=== PATIENT | female | born 1970 | race Caucasian/White ===

== ENCOUNTER 2019-08-23 15:42 | Outpatient (CLI) | payer BC, SELFPAY ==
--- NOTE | 2019-08-23 15:48 | XR_ITS ---
WS: [id number] 3 views of the right first finger, 08/23/2019 Clinical Data: RIGHT THUMB PAIN Comparison: None. Findings: No fractures or dislocations are seen. The soft tissues are normal. There is minimal osteoarthritic c hange between the trapezium and base of the right first metacarpal. XR/XR finger RT min 2V [id number] Impression: Negative for dislocation.
== END 2019-08-23 15:43 | disposition home or self-care (01) ==
LOC: RADWPI 15:44
PROVIDERS: Family Provider Internal Medicine; PCP Internal Medicine; Visit Provider Internal Medicine
DX: M79.644 Pain in right finger(s) (principal)
CPT/HCPCS: 73140

== ENCOUNTER 2019-09-24 11:11 | Outpatient (CLI) | payer BC, SELFPAY ==
--- NOTE | 2019-09-24 11:14 | MM_ITS ---
WS: [id number] BILATERAL DIGITAL SCREENING MAMMOGRAPHY WITH CAD CLINICAL INFORMATION: SCREENING HISTORY: Screening mammogram. No current complaints. COMPARISON: June 17, 2018 TECHNIQUE: Bilateral CC and MLO views. FINDINGS: Scattered fibroglandular densities bilaterally. No suspicious focal mass, asymmetry, calcifications, or architectural distortion. No evidence of malignancy. MM/[id number] IMPRESSION: BI-RADS: 1-Negative FOLLOW UP: 1 Year Follow-up Recommend return to annual screening mammography.
== END 2019-09-24 11:12 | disposition home or self-care (01) ==
LOC: RADSHAW 11:11
PROVIDERS: PCP Internal Medicine; Visit Provider Nurse Practitioner Family
DX: Z12.31 Encounter for screening mammogram for malignant neoplasm of breast (principal)
CPT/HCPCS: 77067

== ENCOUNTER 2021-08-17 06:11 | Day surgery (SDC) | payer OTHER, SELFPAY ==
[2021-08-16 11:39] VITALS: BMI 44.7
[2021-08-17 06:42] VITALS: BP 138/97; PULSE 93; RESP 18; TEMP 36.7; O2SAT 96
[2021-08-17] MEDS: sodium chloride 0.9% 1,000 ML 30 ML IV (06:45)
[2021-08-17 06:46] LABS: OR HCG Qualitative Urine Negative (Negative)
--- NOTE | 2021-08-17 07:45 | ANES.PREANE2 ---
Pre-Anesthetic Assessment Height/Weight: Height 1.55 m Weight 107.501 kg Temp Pulse Resp BP Pulse Ox 98.0 F 93 18 138/97 96 08/17/21 06:42 08/17/21 06:42 08/17/21 06:42 08/17/21 06:42 08/17/21 06:42 Preop Diagnosis: Constipation, GERD, Abdominal pain Operation Date: 08/17/21 07:45 Proposed Procedures p 9[address]93 EGD, 12882 Colon R10.9,K21.9,K59.00(Not Applicable) - DO jeff Posada Colonoscopy(Not Applicable) - Da Decker DO Familial anesthetic complications: None Was Beta Charissa taken within 24 hours: N/A Was Clonidine taken within 24 hours: N/A Last intake: Intake Last Liquid Date 08/16/21 Last Liquid Time 20:00 Last Solid Date 08/15/21 Last Solid Time 17:00 Social No alcohol and No tobacco Exam alert, oriented x 3, clear to auscultation bilaterally and regular rate & rhythm Airway Mallampati: Class II Dentition: full GI Gastroesophageal Reflux Disease Metabolic Morbid Obesity Anesthetic Plan ASA status: 2 Anesthesia: MAC Risk of > 500 ml blood loss (7ml/kg in children): No Medications/Allergies Home Medications Medication Instructions Recorded Confirmed Last Taken Type bupropion HCl 150 mg 24 hr tablet, 150 mg PO QAM 07/18/21 08/16/21 08/16/21 History extended release (Wellbutrin XL) hydroxyzine HCl 50 mg tablet 50 mg PO DAILY tab 07/18/21 08/16/21 1 Month Ago History ~07/18/21 ondansetron HCl 4 mg tablet 4 mg PO Q8H PRN 07/18/21 08/16/21 08/15/21 History pantoprazole 40 mg tablet,delayed 40 mg PO DAILY 07/18/21 08/16/21 1 Month Ago History release (Protonix) ~07/18/21 norgestimate-ethinyl estradiol 1 tab PO DAILY 08/16/21 08/16/21 08/16/21 History 0.18 mg/0.215mg/0.25mg-35 mcg(28)tablet (Tri Femynor) Allergies Allergy/AdvReac Type Severity Reaction Status Date / Time No Known Allergies Allergy Verified 08/17/21 06:40 Current Medications Generic Name Dose Route Start Last Admin Trade Name Freq PRN Reason Stop Dose Admin Sodium Chloride 1,000 mls @ 30 mls/hr 08/17/21 06:30 08/17/21 06:45 Sodium Chloride 0.9% IV 08/18/21 06:29 30 mls/hr .Q24H MIL Administration PFSH Anesthesia Medical History (Updated 07/18/21 @ 10:07 by Da Decker DO) Constipation GERD (gastroesophageal reflux disease) Surgical History (Updated 07/18/21 @ 10:04 by Da Decker DO) History of History of colonoscopy Social History Smoking and tobacco status: never smoked Data Anesthesia Cardiac Studies: No Data to Display
--- NOTE | 2021-08-17 07:49 | PM.HP ---
Providers/Chief Complaint Primary Care Provider: Keira Chang DO Chief Complaint: Abdominal pain History of Present Illness Laxmi Lozano is a 51 year old female who presents for EGD and colonoscopy. Nothing has changed since her previous H&P 31 days ago Review of Systems General: Reports: 10 or more systems reviewed and unremarkable except in HPI and below Medications/Allergies Home Medications Medication Instructions Recorded Confirmed Last Taken Type bupropion HCl 150 mg 24 hr tablet, 150 mg PO QAM 07/18/21 08/16/21 08/16/21 History extended release (Wellbutrin XL) hydroxyzine HCl 50 mg tablet 50 mg PO DAILY tab 07/18/21 08/16/21 1 Month Ago History ~07/18/21 ondansetron HCl 4 mg tablet 4 mg PO Q8H PRN 07/18/21 08/16/21 08/15/21 History pantoprazole 40 mg tablet,delayed 40 mg PO DAILY 07/18/21 08/16/21 1 Month Ago History release (Protonix) ~07/18/21 norgestimate-ethinyl estradiol 1 tab PO DAILY 08/16/21 08/16/21 08/16/21 History 0.18 mg/0.215mg/0.25mg-35 mcg(28)tablet (Tri Femynor) Allergies Allergy/AdvReac Type Severity Reaction Status Date / Time No Known Allergies Allergy Verified 08/17/21 06:40 PFSH Acute PFSH: Medical History Constipation GERD (gastroesophageal reflux disease) Surgical History History of History of colonoscopy Social History Smoking and tobacco status: never smoked Vitals/I&O/Wt Last Vital Signs Temp 98.0 F 08/17/21 06:42 Pulse 93 08/17/21 06:42 Resp 18 08/17/21 06:42 BP 138/97 08/17/21 06:42 Pulse Ox 96 08/17/21 06:42 Weight last 48 hrs Weight 237 lb Physical Exam Narrative: General : Patient is well developed , no acute distress, oriented x3 Head : Normal cephalic, a-traumatic. Ears : Pinnae and external canal are normal. Hearing is normal. Eyes : PERRLA, Sclera and injection are normal. No conjunctival discharge. Nose : Mucous membranes are without erythema. Throat : buccal mucosa is normal, gums are without significant recession or hypertrophy. Lungs : Equal chest rise bilaterally, no use of accessory muscles, trachea is midline. Cor : Rate and rhythm are normal. Abdomen : Soft, ND, NT, no g/r/m Extremities : No edema, no cyanosis or clubbing, dorsalis pedis pulses are present bilaterally, non-tender to palpation of calves. Upper extremities are normal bilaterally. Back : non-tender to palpation, no CVA tenderness. Neuro : CN II - XII intact, Upper and lower extremities have equal and full strength A&P Assessment and plan (1) Abdominal pain: Status: Acute Plan EGD and colonoscopy The risks and benefits of the procedure, including bleeding, infection, intestinal perforation requiring surgery, missed lesion, or explained to the patient. He is understanding of the risks and wishes to proceed. 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
[2021-08-17 08:23] VITALS: BP 124/81; PULSE 94; RESP 18; TEMP 36.3; O2SAT 95
[2021-08-17 08:41] VITALS: BP 120/82; PULSE 78; RESP 18; O2SAT 99
--- NOTE | 2021-08-17 09:02 | ANE.PACU2 ---
Inpatient post-anesthesia follow up: Airway intact: Yes Vital signs: Temperature 97.3 F Pulse Rate 78 Respiratory Rate 18 Blood Pressure 120/82 Pulse Oximetry 99 Oxygen Delivery Me thod Room Air Oxygen Flow Rate 4 Fraction of Inspir ed Oxygen Hydration adequate: Yes Nausea and vomiting: No Pain level: 1 Mental status: Baseline
== END 2021-08-17 08:56 | disposition home or self-care (01) ==
PROVIDERS: Anesthesiology; PCP Family Medicine; Visit Provider Surgery
PROC: 0DJ08ZZ Inspection of Upper Intestinal Tract, Via Natural or Artificial Opening Endoscopic (ICD-10-PCS; CPT 43235; principal; 2021-08-17 07:45)
PROC: 0DJD8ZZ Inspection of Lower Intestinal Tract, Via Natural or Artificial Opening Endoscopic (ICD-10-PCS; CPT 45378; 2021-08-17 07:45)
DX: R10.9 Unspecified abdominal pain (principal); K21.9 Gastro-esophageal reflux disease without esophagitis; K64.3 Fourth degree hemorrhoids; K29.70 Gastritis, unspecified, without bleeding; E66.01 Morbid (severe) obesity due to excess calories; Z68.41 Body mass index [BMI] 40.0-44.9, adult
CPT/HCPCS: 43239; 45378; 81025; 84703; 88305; J2704; J7030

== ENCOUNTER 2022-07-15 10:30 | Outpatient (CLI) | payer OTHER, SELFPAY ==
--- NOTE | 2022-07-15 10:36 | MM_ITS ---
WS: [id number] SCREENING DIGITAL TOMOSYNTHESIS MAMMOGRAM WITH CAD HISTORY: SCREENING COMPARISON: 09/24/2019, 06/17/2018 Bilateral CC and MLO with tomosynthesis views submitted. Synthetic mammography reviewed. Computer aid ed detection analyzed. Breast composition: There are scattered areas of fibroglandular density. No suspicious masses, microc alcifications or architectural distortion. MM/[place] [id number] IMPRESSION: BI-RADS: 1-Negative FOLLOW UP: 1 Year Follow-up
== END 2022-07-15 10:31 | disposition home or self-care (01) ==
PROVIDERS: PCP Family Medicine; Visit Provider Advanced Practice Midwife
DX: Z12.31 Encounter for screening mammogram for malignant neoplasm of breast (principal)
CPT/HCPCS: 77063; 77067

== ENCOUNTER 2023-02-04 21:54 | Emergency (ER) | payer OTHER, SELFPAY ==
[2023-02-04 21:58] VITALS: BP 156/96; PULSE 96; RESP 18; TEMP 36.3; O2SAT 96
[2023-02-04 22:38] LABS: Basophils % 0.4 %; Eosinophils # 0.1 10^3/uL (0.0-0.8); Eosinophils % 1.2 %; Hematocrit 34.4 % (36-47); Lymphocytes # 2.4 10^3/uL (0.8-4.8); Mean Corpuscular HGB Conc 32.8 g/dL (30-55); Mean Corpuscular Hemoglobin 30.3 pg (27-33); Mean Corpuscular Volume 92.2 fl (85-98); Monocytes # 0.9 10^3/uL (0.2-0.9); Monocytes % 10.6 %; Neutrophils # 5.11 10^3/uL (1.8-7.7); Neutrophils % 59.6 %; Nucleated Red Blood Cells % 0 %; Platelet Count 227 10^3/cmm (157-399); Red Blood Count 3.73 10^6/uL (3.85-5.65); Red Cell Distribution Width 13.7 % (12.1-15.1); White Blood Count 8.57 10^3/uL (3.29-11.43)
--- NOTE | 2023-02-04 22:54 | CTR_ITS ---
PROCEDURE INFORMATION: Exam: CT Abdomen And Pelvis With Contrast Exam date and time: 02/04/2023 11:11 PM Age: 53 years old Clinical indication: Abdominal pain; Epigastric; Prior surgery; Surgery date: 1-6 months; Surgery type: Gastric sleeve September 2022; Additional info: Abd pain TECHNIQUE: Imaging protocol: Computed tomography of the abdomen and pelvis with contrast. Radiation optimization: All CT scans at this facility use at least one of these dose optimization techniques: automated exposure control; mA and/or kV adjustment per patient size (includes targeted exams where dose is matched to clinical indication); or iterative reconstruction. Contrast material: OMNI 350; Contrast volume: 75 ml; Contrast route: INTRAVENOUS (IV); REPORTING DATA: Count of CT and Cardiac NM exams in prior 12 months: This patient has received 0 known CTs and 0 known cardiac nuclear medicine studies in the 12 months prior to the current study. COMPARISON: No relevant prior studies available. RADIATION DOSE METRICS: Total DLP (mGy-cm): 781.68 FINDINGS: Lungs: Clear. Question filling defect within the proximal right upper lobe segmental pulmonary artery branch, series 3, image 1, however this is on the last image slice of the stack, could be artifactual. Liver: Unremarkable. Gallbladder and bile ducts: No calcified stones. No biliary ductal dilation. No pericholecystic fluid. Pancreas: Unremarkable. No duct dilation. Spleen: Unremarkable. Adrenal glands: Unremarkable. Kidneys and ureters: No hydronephrosis or hydroureter. No renal or ureteral calculi. Stomach and bowel: Surgical changes of gastric sleeve. Small hiatal hernia. No bowel obstruction. Appendix: Normal appendix. Intraperitoneal space: Unremarkable. No free air. No significant fluid collection. Vasculature: No abdominal aortic aneurysm. Lymph nodes: No enlarged lymph nodes. Urinary bladder: Unremarkable as visualized. Reproductive: Unremarkable as visualized. Bones/joints: No acute fracture. Degenerative change. Soft tissues: Unremarkable. CT/CT abdomen pelvis w con* [id number] IMPRESSION: 1. No acute findings in the abdomen/pelvis. 2. Question filling defect within the proximal right upper lobe segmental pulmonary artery branch, however this is seen on the last image slice of the stack and may be artifactual. If clinically indicated, this could be further evaluated with CT PE study. 3. Small hiatal hernia.
[2023-02-04 22:55] LABS: Alanine Aminotransferase 18 U/L (0-33); Albumin Level 4.2 g/dL (3.5-5.2); Alkaline Phosphatase 61 U/L (35-105); Aspartate Amino Transferase 17 U/L (0-32); Blood Urea Nitrogen 23 mg/dL (6-20); Calcium 9.5 mg/dL (8.5-10.5); Carbon Dioxide 24 mmol/L (22-29); Chloride 102 mmol/L (98-107); Globulin 2.7 g/dL (1.3-4.6); Glomerular Filtration Rate 39.5 mL/min (90-130); Glucose 154 mg/dL (65-115); Lipase 34 U/L (13-60); Osmolality Calculated 297 mOsm/kg (285-295); Sodium 140 mmol/L (136-145); Total Bilirubin 0.3 mg/dL (0.15-1.2); Total Protein 6.9 g/dL (6.6-8.7)
--- NOTE | 2023-02-04 22:56 | ED_ITS ---
HPI - Abdominal Pain 2 General: Chief Complaint: Abdominal Pain Stated Complaint: abd pain Time Seen by Provider: 02/04/23 22:45 History of Present Illness: 54-year-old female presents em ergency room with nausea, vomiting and abdominal pain that started today. Patient further reviews that she has gastric sleeve done in [place] about 5 months ago. Patient was having nausea and vomiting every day since having the surgery done in September of this year.. She became more concerned today, because of the abdominal pain that started today. She described the pain as sharp aching sensation with severity of 7 out of 10 mostly epigastric region. Patient has any vomiting blood or coughing up blood. No fever, chills, dysuria, hematuria urine frequency. No known sick contact recent foreign travel. Associated Symptoms: Reports nausea and vomiting; Denies belching, bloating, change in bowel habits, chills, coffee ground emesis, constipation, GI cramping, excessive flatus and fever(s) Review of Systems 2 General: Reports: 10 or more systems reviewed and unremarkable except in HPI and below Const: Denies: fever(s), chills, body aches, change in appetite, change in weight, fatigue, malaise or diaphoresis GI: Reports: abdominal pain, nausea and vomiting; Denies: coffee ground emesis, dysphagia, constipation, bloating, GI cramping, belching, excessive flatus, change in bowel habits, pain on defecation, rectal pain or rectal swelling PFS ED 2 PFSH: Medical History (Updated 02/05/23 @ 00:06 by Mike Gutierrez MD) Grade IV internal hemorrhoids H. pylori infection Constipation GERD (gastroesophageal reflux disease) Surgical History History of colonoscopy History of Social History Smoking and tobacco/nicotine status: never used tobacco/nicotine Physical Exam 2 Const: COMMON NORMALS: no acute distress, average body habitus, patient oriented x3, no limitations, healthy appearing, alert and well nourished HENMT: COMMON NORMALS: normocephalic, atraumatic, hearing grossly normal bilaterally, external ears normal, EAC's normal, TM's normal bilaterally, Normal external nose present, Normal nasal mucous membranes and turbinates present, moist oral mucous membranes, oropharynx normal, dentition normal and gingiva normal HEAD & SCALP: normocephalic and atraumatic NOSE: Normal external nose present and Normal nasal mucous membranes and turbinates present E XTERNAL EAR: Yes external ears normal EXTERNAL AUDITORY CANAL: EAC's normal TYMPANIC MEMBRANE: TM's normal bilaterally Resp: COMMON NORMALS: normal respiratory effort, No retractions, No use of accessory muscles, clear to auscultation bilaterally and percussion normal A USCULTATION: clear to auscultation bilaterally PERCUSSION: percussion normal GI: COMMON NORMALS: Soft to palpation INSPECTION: Yes normal to inspection, No Abdominal wall edema, No Anasarca and No abdominal distension PALPATION: Y es Soft to palpation, Yes Tenderness to palpation present (GI) Details: other (Epigastric area), No Splenomegaly present, No Pulsatile mass present, No Ascites present and No Abdominal wall crepitus present : COMMON NORMALS: Yes no CVA tenderness BLADDER/KIDNEY EXAM: Yes no CVA tenderness Back/Pelvis: COMMON NORMALS: no CVA tenderness and no thoracic nor lumbar tenderness; negative for thoracic and lumbar spine normal to inspection and negative for straight leg raise negative bilaterally Extremity: COMMON NORMALS: normal to inspection, full ROM, capillary refill normal, no joint enlargement, no clubbing, cyanosis or edema, no calf tenderness and no pedal edema Neuro: COMMON NORMALS: patient oriented x3 SENSORIUM/ORIENTATION: Yes alert Course 2 Reevaluation(s): Reevaluation #1: Upon reassessment patient reveals complete resolution of her pain. No more nausea or vomiting at this time. Will be given another bag of fluids due to dehydration Vital Signs: Vital signs: Vital Signs Temperature 97.3 F L 02/04/23 21:58 Pulse Rate 80 02/05/23 01:45 Respiratory Rate 16 02/05/23 01:45 Blood Pressure 156/96 02/04/23 21:58 Pulse Oximetry 99 02/05/23 01:45 Oxygen Delivery Me thod Room Air 02/04/23 21:58 MDM - Abdominal Pain Medical Decision Making Patient was made comfortable emergency room had extensive workup with CBC, CMP, lipase UA and a CT scan. Patient was given Protonix and pain medication. Per assessment patient revealed complete insertion of a pain. Given her recent surgical intervention patient was given referral to see local surgeon for further evaluation and treatment. Patient be discharged home on nausea medication and potassium supplement Differential Diagnosis Likely abdominal pain, acute appendicitis, calculus of kidney, constipation, diverticulitis, endometriosis, gastroenteritis, pancreatitis and small bowel obstruction Lab Data 02/04/23 22:30 02/04/23 22:30 Labs/Radiology: Radiology Impressions Abdomen/Pelvis CT 02/04/23 22:54 IMPRESSION: 1. No acute findings in the abdomen/pelvis. 2. Question filling defect within the proximal right upper lobe segmental pulmonary artery branch, however this is seen on the last image slice of the stack and may be artifactual. If clinically indicated, this could be further evaluated with CT PE study. 3. Small hiatal hernia. Laboratory Results WBC 8.57 10^3/uL (3.29-11.43) 02/04/23 22:30 RBC 3.73 10^6/uL (3.85-5.65) L 02/04/23 22:30 Hgb 11.30 g/dL (11.27-16.99) 02/04/23 22:30 Hct 34.4 % (36-47) L 02/04/23 22:30 MCV 92.2 fl (85-98) 02/04/23 22: MCH 30.3 pg (27-33) 02/04/23 22:30 MCHC 32.8 g/dL (30-55) 02/04/23 22:30 RDW 13.7 % (12.1-15.1) 02/04/23 22:30 Plt Count 227 10^3/cmm (157-399) 02/04/23 22:30 MPV 10.0 fL (7.4-10.4) 02/04/23 22:30 Neut % (Auto) 59.6 % 02/04/23 22:30 Lymph % (Auto) 28.0 % 02/04/23 22:30 Phelps % (Auto) 10.6 % 02/04/23 22:30 Eos % (Auto) 1.2 % 02/04/23 22: Baso % (Auto) 0.4 % 02/04/23 22:30 Neut # (Auto) 5.11 10^3/uL (1.8-7.7) 02/04/23 22:30 Lymph # (Auto) 2.4 10^3/uL (0.8-4.8) 02/04/23 22:30 Phelps # (Auto) 0.9 10^3/uL (0.2-0.9) 02/04/23 22:30 Eos # (Auto) 0.1 10^3/uL (0.0-0.8) 02/04/23 22:30 Baso # (Auto) 0.0 10^3/uL (0.0-0.1) 02/04/23 22:30 Nucleated RBC % (auto) 0 % 02/04/23 22:30 Nucleated RBCs # 0.0 /100WBC 02/04/23 22:30 Sodium 140 mmol/L (136-145) 02/04/23 22:30 Potassium 3.0 mmol/L (3.5-5.1) L 02/04/23 22:30 Chloride 102 mmol/L (98-107) 02/04/23 22:30 Carbon Dioxide 24 mmol/L (22-29) 02/04/23 22:30 Anion Gap 17.0 (5-19) 02/04/23 22:30 BUN 23 mg/dL (6-20) H 02/04/23 22:30 Creatinine 1.4 mg/dL (0.5-0.9) H 02/04/23 22:30 GFR Calculation 39.5 mL/min (90-130) L 02/04/23 22:30 Glucose 154 mg/dL (65-115) H 02/04/23 22:30 Calculated Osmolality 297 mOsm/kg (285-295) H 02/04/23 22:30 Calcium 9.5 mg/dL (8.5-10.5) 02/04/23 22:30 Total Bilirubin 0.3 mg/dL (0.15-1.2) 02/04/23 22:30 AST 17 U/L (0-32) 02/04/23 22:30 ALT 18 U/L (0-33) 02/04/23 22:30 Alkaline Phosphatase 61 U/L (35-105) 02/04/23 22:30 Total Protein 6.9 g/dL (6.6-8.7) 02/04/23 22: Albumin 4.2 g/dL (3.5-5.2) 02/04/23 22:30 Globulin 2.7 g/dL (1.3-4.6) 02/04/23 22:30 Lipase 34 U/L (13-60) 02/04/23 22:30 XR interpretation done by ED provider, pending radiology final review Discharge Plan Discharge Patient Disposition: Home Clinical Impression: GERD (gastroesophageal reflux disease), Nausea & vomiting, Acute dehydration, Acute hypokalemia Condition: Stable Prescriptions: New Reglan 10 mg tablet 10 mg PO Q6H PRN (Reason: nausea and vomiting) Qty: 20 0RF Protonix 40 mg tablet,delayed release (DR/EC) 40 mg PO QAM 28 Days Qty: 28 0RF potassium chloride 20 mEq packet 20 meq PO BID Qty: 30 0RF No Action bupropion HCl [Wellbutrin XL] 150 mg tablet extended release 24 hr 150 mg PO QAM hydroxyzine HCl 50 mg tablet 50 mg PO DAILY pantoprazole [Protonix] 40 mg tablet,delayed release (DR/EC) 40 mg PO DAILY ondansetron HCl 4 mg tablet 4 mg PO Q8H PRN (Reason: Nausea) norgestimate-ethinyl estradiol [Tri Femynor] 0.18/0.215/0.25 mg-35 mcg (28) tablet 1 tab PO DAILY Discharge Orders: Discharge ED (Routine); Ordered 02/04/23 Ordered By: Mike Gutierrez Referrals: Keira Chang DO [Primary Care Provider] - Discharge Diet: Advance as tolerated Discharge Activity: Resume usual activity Patient Instructions: Opioid Safety, Pain Management Coding Level of Care Code ED Contact [employer] C[employer] for Zari Warren
[2023-02-04] MEDS: iohexol 350 mg/mL 500 mL Btl (per mL) IV (23:15)
[2023-02-04] MEDS: pantoprazole 40 mg SDV IVP (23:35)
[2023-02-04] MEDS: metoclopramide 5 mg/mL SDV 2 mL 10 MG IVP (23:35)
[2023-02-04] MEDS: HYDROmorphone 1 mg/mL INJ 1 mL IVP (23:36)
[2023-02-05] MEDS: sodium chloride 0.9% 1,000 ML 999 ML IV (00:30)
[2023-02-05 01:45] VITALS: PULSE 80; RESP 16; O2SAT 99
== END 2023-02-05 01:46 | disposition home or self-care (01) ==
PROVIDERS: Physician Assistant; Emergency Provider Family Medicine; PCP Family Medicine
DX: K21.9 Gastro-esophageal reflux disease without esophagitis (principal); E86.0 Dehydration; E87.6 Hypokalemia; R11.2 Nausea with vomiting, unspecified; Z98.84 Bariatric surgery status
CPT/HCPCS: 36415; 74177; 80053; 83690; 85025; 96361; 96374; 96375; 99285; C9113; J1170; J2765; J7030; Q9967

== ENCOUNTER 2023-07-18 10:41 | Outpatient (CLI) | payer OTHER, SELFPAY ==
--- NOTE | 2023-07-18 10:49 | MM_ITS ---
WS: [id number] SCREENING DIGITAL TOMOSYNTHESIS MAMMOGRAM WITH CAD HISTORY: SCREENING COMPARISON: 07/15/2022, 09/24/2019 Bilateral CC and MLO with tomosynthesis views submitted. Synthetic mammography reviewed. Computer aid ed detection analyzed. Breast composition: There are scattered areas of fibroglandular density. No suspicious masses, microc alcifications or architectural distortion. There is no abnormality within the breast but on the LEFT MLO projection there is an area of distorti on and posterior retraction of soft tissue towards the axilla. This area should be further evaluated. This may be related to positioning of the breast but this area needs to be further evaluated for pos sible mass that is not imaged. MM/[place] [id number] IMPRESSION: BI-RADS: 0-Incomplete: Need additional imaging evaluation FOLLOW UP: Need Additional Imaging Recommend additional LEFT MLO image to see if the area of distortion in the axi lla persists. Ultrasound may also be necessary to evaluate deep against the LEF T chest wall.
== END 2023-07-18 10:42 | disposition home or self-care (01) ==
LOC: RAD 10:41
PROVIDERS: PCP Family Medicine; Visit Provider Advanced Practice Midwife
DX: Z12.31 Encounter for screening mammogram for malignant neoplasm of breast (principal); R92.323 Mammographic fibroglandular density, bilateral breasts; R92.8 Other abnormal and inconclusive findings on diagnostic imaging of breast
CPT/HCPCS: 77063; 77067

== ENCOUNTER 2024-08-03 12:26 | Outpatient (CLI) | payer OTHER, SELFPAY ==
--- NOTE | 2024-08-03 12:32 | MM_ITS ---
WS: [id number] BILATERAL 3D TOMOSYNTHESIS DIGITAL SCREENING MAMMOGRAPHY WITH CAD CLINICAL INFORMATION: SCREENING HISTORY: Screening mammogram. No current complaints. COMPARISON: 2023 TECHNIQUE: Bilateral CC and MLO views. FINDINGS: Scattered fibroglandular densities bilaterally. No suspicious focal mass, asymmetry, calcifications, or architectural distortion. No evidence of malignancy. MM/MM scr BI tomosynthesis [id number] IMPRESSION: DENSITY: There are scattered areas of fibroglandular density. BI-RADS: 1 - Negative. FOLLOW UP: 1 Year Follow-up Recommend return to annual screening mammography.
== END 2024-08-03 12:27 | disposition home or self-care (01) ==
LOC: RAD 12:27
PROVIDERS: PCP Family Medicine; Visit Provider Advanced Practice Midwife
DX: Z12.31 Encounter for screening mammogram for malignant neoplasm of breast (principal); R92.323 Mammographic fibroglandular density, bilateral breasts
CPT/HCPCS: 77063; 77067